=== PATIENT | female | born 1985 ===

== ENCOUNTER → 2022-09-05 10:13 | Outpatient (CLI) | payer OTHER, SELFPAY ==
--- NOTE | 2022-09-05 | DI.RAD.S_ITS ---
PROCEDURE: XR LUMBAR SPINE 2-3V INDICATIONS: low back pain TECHNIQUE: 3 views of the lumbar spine were acquired. COMPARISON: None. FINDINGS: Bones: 5 [id number] vertebrae are present. There is normal bony alignment. No vertebral body compression fractures. No suspicious bony lesions. Soft tissues: Overlying bowel gas pattern is normal. No suspicious soft tissue calcifications. IMPRESSION: No acute fracture. No osseous lesion. If symptoms and/or clinical suspicion for pathology persist, further assessment with repeat, or advanced imaging (e.g., CT, MRI, or bone scan) may be helpful for further assessment. Dictated by: Taran Orozco M.D. on 09/05/2022 at 10:56 Transcribed by: SONI on 09/05/2022 at 10:57 Approved by: Taran Orozco M.D. on 09/05/2022 at 16:35
== END ==
PROVIDERS: Referring Provider Internal Medicine Cardiovascular Disease; Visit Provider Internal Medicine Cardiovascular Disease
DX: M54.50 Low back pain, unspecified (principal)
CPT/HCPCS: 72100